=== PATIENT | female | born 1980 | race African-American/Black ===

== ENCOUNTER 2020-07-14 02:39 | Emergency (ER) | payer MEDICAID ==
[~2020-07-14] VITALS: Ht 162.6 cm; Wt 54.0 kg
[2020-07-14] MEDS ORDERED: SODIUM CHLORIDE 0.9% 1,000 ML IV ONE (03:13)
[2020-07-14] MEDS ORDERED: LORAZEPAM 2MG/ML CPJ IV ONE (03:15)
[2020-07-14] MEDS ORDERED: ONDANSETRON HCL 4MG/2ML INJ IV ONE (03:15)
[2020-07-14 03:50] LABS: CHLORIDE 109 mEq/L (98-107)
[2020-07-14 03:51] LABS: BASOPHILS % 2.1 % (0.0-2.0); HEMATOCRIT. 29.6 % (36.0-48.0); HEMOGLOBIN. 8.9 g/dL (12.0-16.0); LYMPHOCYTES % 30.6 % (20.0-50.0); MEAN CORPUSCULAR HEMOGLOBIN 19.9 pg (28.0-32.0); MEAN CORPUSCULAR VOLUME 66.5 fL (81.0-99.0); MEAN PLATELET VOLUME 6.2 fl (7.4-10.4); NEUTROPHILS % 60.3 % (40.0-76.0); PLATELET 486 x1000/uL (130-400); RED BLOOD CELL COUNT 4.46 mill/uL (4.2-5.4); RED CELL DISTRIBUTION WIDTH 19.1 % (11.6-14.6)
[2020-07-14 03:54] LABS: ETHANOL BLOOD 179 mg/dL
[2020-07-14 03:56] LABS: HCG SCREEN NEGATIVE
[2020-07-14 04:06] LABS: CLARITY URINE CLEAR (CLEAR); COLOR URINE YELLOW (YELLOW); KETONES URINE NEGATIVE (NEGATIVE); LEUKOCYTE ESTERASE URINE NEGATIVE (NEGATIVE); NITRITE URINE NEGATIVE (NEGATIVE); OCCULT BLOOD URINE NEGATIVE (NEGATIVE); PH URINE 5.5 (4.5-8.0); PROTEIN URINE TRACE (NEGATIVE); SPECIFIC GRAVITY URINE 1.026 (1.005-1.030)
[2020-07-14 04:15] LABS: *AMPHETAMINES SCREEN URINE PRESUMTIVE POSITIVE (NEGATIVE); *BARBITURATES SCREEN URINE NEGATIVE (NEGATIVE); *BENZODIAZEPINES SCREEN URINE NEGATIVE (NEGATIVE)
[2020-07-14 04:16] LABS: *COCAINE SCREEN URINE PRESUMTIVE POSITIVE (NEGATIVE); CANNABINOID URINE SCREEN PRESUMTIVE POSITIVE (NEGATIVE); METHADONE URINE SCREEN NEGATIVE (NEGATIVE); OPIATES URINE SCREEN NEGATIVE (NEGATIVE); PHENCYCLIDINE URINE SCREEN PRESUMTIVE POSITIVE (NEGATIVE)
[2020-07-14 04:27] LABS: PLATELET ESTIMATE NORMAL
[2020-07-14 09:35] VITALS: BP 108/62
== END 2020-07-14 09:38 | disposition home or self-care (01) ==
LOC: EDBD 02:55 → ER 02:55
DX: F14.188 Cocaine abuse with other cocaine-induced disorder (principal); F16.188 Hallucinogen abuse with other hallucinogen-induced disorder; F15.188 Other stimulant abuse with other stimulant-induced disorder; F12.188 Cannabis abuse with other cannabis-induced disorder; F10.10 Alcohol abuse, uncomplicated; Y90.6 Blood alcohol level of 120-199 mg/100 ml; Z78.1 Physical restraint status
CPT/HCPCS: 36415; 70450; 71045; 80053; 80305; 80307; 80320; 80329; 81003; 81025; 84703; 85025; 93005; 96361; 96374; 96375; 99285; J2060; J2405; J7030; G0480